=== PATIENT | female | born 2000 | race Two or more races ===

== ENCOUNTER 2021-05-15 23:26 | Emergency (ER) | payer MEDICAID, OTHER ==
[~2021-05-15] VITALS: Ht 160 cm; Wt 59.0 kg
[2021-05-16] MEDS ORDERED: KETOROLAC TROMETH 60MG/2ML VIAL IM ONE (00:15)
[2021-05-16 01:35] LABS: Urine Bacteria FEW /hpf (None Seen); Urine Blood 1+ /uL (Negative); Urine Specific Gravity 1.013 (1.001-1.035); Urine WBC 199 /hpf (0 - 5); Urine WBC Clumps PRESENT /hpf (None Seen)
[2021-05-16] MEDS ORDERED: PHENAZOPYRIDINE HCL 100 MG TAB PO ONE (03:00)
[2021-05-16] MEDS ORDERED: cefTRIAXone SOD 1,000 MG VL IM ONE (03:00)
[2021-05-16] MEDS ORDERED: FLUCONAZOLE 100 MG TAB PO ONE (03:00)
[2021-05-16 03:20] VITALS: BP 137/88
== END 2021-05-16 03:44 | disposition home or self-care (01) ==
LOC: ER 23:29
DX: N39.0 Urinary tract infection, site not specified (principal); N76.0 Acute vaginitis; B37.9 Candidiasis, unspecified; Z91.018 Allergy to other foods
CPT/HCPCS: 81001; 96372; 99284; J0696; J1885